=== PATIENT | male | born 1985 | race Caucasian/White ===

== ENCOUNTER 2016-09-07 16:02 | Emergency (ER) | payer OTHER, BC ==
[2016-09-07] MEDS ORDERED: Ondansetron ODT TAB* 4 MG PO ONE (16:26)
[2016-09-07] MEDS ORDERED: SUMAtriptan SQ* 6 MG/0.5 ML VIAL SUBCUT ONE (16:28)
--- NOTE | 2016-09-07 16:32 | UC ---
Headache HPI - HPI Summary HPI Summary: 31 yo M with hx migraines dx'd by [facility], who has used sumatriptan pills and Maxalt in the past, c/o diffuse bilateral pressure type headache since 0200 this am. Pt tried excedrin without relief. He was unsure if he could take the sumatriptan with the excedrin. Pt states he didn't have to work today, so he didn't take as much caffeine as he normally does. He drinks coffee and Mountain Dew in large amounts when he works. No trauma. No focal neurologic symptoms, although his states that he has mumbled when he is talking. - History Of Current Complaint Chief Complaint: UCHeadache Stated Complaint: MIGRAINE Time Seen by Provider: 09/07/16 16:04 Hx Obtained From: Patient, Family/Mechanic Recovery - Onset/Duration: Gradual Onset, Lasting Hours, Still Present Onset Of Symptoms: Gradual Initially Headache Was: Initial Pain Scale(0-10)= - 10 Currently Pain Is: Current Pain Scale(0-10)= - 10 Pain Intensity: 10 Pain Scale Used: 0-10 Numeric Timing: Constant Character: Pressure Location of Headache: Diffuse Aggravating Factor: Nothing Allevating Factors: Nothing Associated Signs And Symptoms: Positive: Nausea. Negative: Dizziness, Seizure, Vomiting, Fever, Neck Pain, Decreased LOC, Visual Changes - Risk Factors SAH Risk Factors: Negative Meningitis Risk Factors: Negative SDH Risk Factors: Male Temporal Arteritis Risk Factors: Negative - Allergies/Home Medications Allergies/Adverse Reactions: Allergies Allergy/AdvReac Type Severity Reaction Status Date / Time Milk-related Compounds Allergy Unknown Verified 09/07/16 16:09 Reaction Details Home Medications: Home Medications Ixyfkdx-Pnhqyxdafthmh-[place] [Excedrin Extra Strength] 1 tab PO ONCE PRN 09/07 [History Confirmed 09/07/16] SUMAtriptan TAB* [Imitrex TAB*] 100 mg PO SEE INSTRUCTIONS PRN 09/07/16 [ History Confirmed 09/07/16] PMH/Surg Hx/FS Hx/Imm Hx Previously Healthy: Yes - Surgical History Surgical History: None - Family History Known Family History: Positive: Other - pt is adopted - Social History Occupation: Employed Full-time Lives: With Family Alcohol Use: None Substance Use Type: None Smoking Status (MU): Never Smoked Tobacco Review of Systems Constitutional: Negative Skin: Negative Eyes: Negative ENT: Negative Respiratory: Negative Cardiovascular: Negative Gastrointestinal: Negative Genitourinary: Negative Motor: Negative Neurovascular: Negative Musculoskeletal: Negative Neurological: Headache Psychological: Negative All Other Systems Reviewed And Are Negative: Yes Physical Exam Triage Information Reviewed: Yes Appearance: Well-Nourished, Ill-Appearing, Pain Distress Vital Signs: Initial Vital Signs Temp 97.5 F 09/07/16 16:10 Pulse 79 09/07/16 16:10 Resp 16 09/07/16 16:10 BP 107/45 09/07/16 16:10 Pulse Ox 99 09/07/16 16:10 Vital Signs Reviewed: Yes Eyes: Positive: Conjunctiva Clear, Other: - PERRL EOMI ENT: Positive: Hearing grossly normal, Pharynx normal. Negative: Muffled/ hoarse voice Neck: Positive: Supple, Nontender, No Lymphadenopathy Respiratory: Positive: Lungs clear, Normal breath sounds, No respiratory distress Cardiovascular: Positive: RRR, No Murmur, Pulses Normal, Brisk Capillary Refill Abdomen Description: Positive: Nontender, Soft Musculoskeletal: Positive: Strength Intact, ROM Intact Neurological: Positive: Alert, Muscle Tone Normal, Other: - CN II-XII intact, Motor 5/5, Sensation intact, reflexes 2+ intact Psychological Exam: Normal Psychological: Positive: Normal Response To Family Skin Exam: Normal Headache Course/Dx - Course Course Of Treatment: 31 yo M with hx migraine based on prior presciptions for sumatriptan and maxalt presents with PINA that is consistent with migraine, unrelieved by Excedrin. Will treat with sumatriptan subcut, and ondansetron. Have talked with pt about his caffeine intake, as components of this PINA could be caffeine withdrawal. - Differential Dx/Diagnosis Differential Diagnosis/HQI/PQRI: CVA, Migraine, Subarachnoid Hemorrhage, Tension Headache, Other - caffeine withdrawal Provider Diagnoses: acute migraine Discharge - Discharge Plan Condition: Stable Disposition: HOME Prescriptions: Ondansetron ODT TAB* [Zofran 4 MG Odt TAB*] 4 mg PO Q6H PRN #20 tab.odt PRN Reason: Nausea Patient Education Materials: Migraine Headache (ED) Forms: *Work Release Referrals: Non Staff,Doctor [Primary Care Provider] - Additional Instructions: We gave you a shot of sumatriptan 6mg subcutaneously and ondansetron 4mg ODT with relief of your symptoms today. Return to urgent care if you have any new or worsening symptoms.
[2016-09-07] MEDS ORDERED: SUMAtriptan SQ* 6 MG/0.5 ML VIAL ONE (16:42)
[2016-09-07 17:47] VITALS: BP 140/63
== END 2016-09-07 17:54 | disposition home or self-care (01) ==
LOC: UCCORT 16:02
DX: G43.809 Other migraine, not intractable, without status migrainosus (principal)
CPT/HCPCS: 96372; 99202; A9270-GY; G0463; J3030